=== PATIENT | female | born 1960 | race African-American/Black ===

== ENCOUNTER → 2019-04-08 | Outpatient (CLI) | payer OTHER ==
--- NOTE | 2019-04-08 16:23 | KCIC ---
CHEST AP ONLY History: Positive TB skin test. Comparison: None. Findings: No consolidation or pleural effusion. Normal heart size. No radiographic evidence of primary or latent tuberculosis. Impression: 1. No acute cardiopulmonary process. Electronically signed by: Albino Mcclain DO (04/08/2019 4:20 PM) [facility]
== END | disposition home or self-care (01) ==
LOC: KCIC 10:31
PROVIDERS: ATTEND Family Medicine
DX: R76.11 Nonspecific reaction to tuberculin skin test without active tuberculosis (principal)
CPT/HCPCS: 71045